=== PATIENT | female | born 1995 | race Native Hawaiian/Other Pacific Islander ===

== ENCOUNTER 2019-09-09 17:00 | Emergency (ER) | payer OTHER ==
[~2019-09-09] VITALS: Ht 162.6 cm; Wt 72.6 kg
[~2019-09-09 17:00] MED LIST: IBUPROFEN200 M1 PO; PROAIR HFA IN
[2019-09-09 17:30] VITALS: BP 124/88; TEMP 97.8
[2019-09-09 19:21] LABS: PLATELET COUNT 305 K/uL (152-353)
[2019-09-09 19:30] LABS: POTASSIUM 3.4 mmol/L (3.6-5.2)
== END 2019-09-09 20:30 | disposition home or self-care (01) ==
LOC: ED 17:00
PROVIDERS: Family Medicine
DX: F41.8 Other specified anxiety disorders (principal); F31.9 Bipolar disorder, unspecified; R00.0 Tachycardia, unspecified
CPT/HCPCS: 80053; 80329; 85027; 93005; 99282